=== PATIENT | female | born 1960 | race Caucasian/White ===

== ENCOUNTER 2019-02-24 14:34 | Inpatient (IN) | payer OTHER, SELFPAY ==
[2019-02-24 13:20] VITALS: BP 154/92; PULSE 78; RESP 16; TEMP 36.8; O2SAT 98
[2019-02-24 13:30] VITALS: PULSE 72
[2019-02-24 14:00] VITALS: BMI 41.3
[2019-02-24 14:14] VITALS: BMI 41.4
[2019-02-24 15:19] LABS: Absolute Lymphocyte Count 0.49 X10^3/uL (0.83-4.51); Absolute Neutrophil Count 3.9 X10^3/uL (2.0-7.7); Basophil# 0.01 X10^3/uL; Basophil% 0.2 % (0-1); Hematocrit 40.2 % (37-47); Lymphocyte # 0.49 X10^3/ul (4.0); Lymphocyte % 10.9 % (19-41); Mean Corp Hgb Conc 32.3 g/dL (32-36); Mean Corpuscular Hgb 30.7 pg (27.0-32.0); Mean Platelet Vol. 9.4 fl (6.2-12.0); Monocyte# 0.03 X10^3/uL; Monocyte% 0.7 % (0-10); NRBC Flagged by Analyzer 0 % (0-5); Neutrophil % 86.9 % (47-70); POSITIVE DIFFERENTIAL YES; POSITIVE MORPHOLOGY YES; Platelet Count 195 K/mm3 (150-450); RBC Distribution Width CV 12.7 % (11.6-14.6); Red Blood Count 4.23 M/mm3 (4.2-5.4); White Blood Count 4.5 K/mm3 (4.4-11.0)
[2019-02-24 15:20] LABS: Differential Indicated SCAN CRITERIA MET
[2019-02-24] MEDS: Morphine 2 MG/ML Syringe IV ×2 (15:28→18:45)
[2019-02-24] MEDS: 0.9% Normal Saline 1,000 ML 125 ML IV ×2 (15:28→23:47)
[2019-02-24] MEDS: 0.9% Saline Lock 10 ML Syringe IV ×2 (15:28→18:45)
[2019-02-24 15:32] LABS: ALB/GLOB Ratio 0.8 RATIO (0.9-2.4); AST(SGOT) 16 U/L (15-37); Alanine Aminotransfer ALT/SGPT 15 U/L (13-56); Albumin, Serum 3.3 g/dL (3.2-5.0); Alkaline Phosphatase 91 U/L (45-117); Anion Gap 5 (5-15); BUN 17 mg/dL (7-18); BUN/Creat Ratio 18.1 RATIO (10-20); Calcium,Total 8.9 mg/dL (8.5-10.1); Chloride 108 mmol/L (98-107); Creatinine, Serum 0.94 mg/dL (0.55-1.02); EST Glomerular Filtration Rate 64 mL/min (>60); Est Glom Filt Rate - Afr Amer 78 mL/min (>60); Estimated Creatinine Clearance 50.34 ml/min; Globulin 3.9 g/dL (2.2-4.2); Glucose 119 mg/dL (74-106); Potassium 4.5 mmol/L (3.5-5.1); Protein, Total 7.2 g/dL (6.4-8.2); Sodium Level 139 mmol/L (136-145)
[2019-02-24 15:55] LABS: Anisocytosis RARE; Macrocytosis RARE; Platelet Estimate ADEQUATE (ADEQ); Red Cell Morphology N CHROM NORMAL (NORM C&C); Toxic Granulation RARE
--- NOTE | 2019-02-24 16:46 | HP.PCM_ITS ---
Problem List (1) Left ureteral calculus Status: Acute History of Present Illness Date of Admission: 02/24/19 Chief Complaint: left 10mm UPJ stone and pyelonephritis The patient is a 58 year old female with multiple medical problems who presented to outside emergency room with severe left flank pain CAT scan was done to demonstrate obstructing stone in the proximal left ureter at the left UPJ causing hydronephrosis obstruction she was also found to have a significant urinary tract infection so because of this she was transferred here for further care. She clinically looks stable. No signs of sepsis. She is clinically stable at this point her pain is under control plan to take her surgery tomorrow for stent Past medical history includes a history of a stroke, she has a hole in her heart and she had a patch this past year, she has a history of orthopedic surgery for her shoulder that she fractured when she fell. She is on Plavix and aspirin to prevent stroke. We will him to hold the Plavix and aspirin for the stent but will restart it immediately given her history of a stroke this past year. Past Medical History Allergies No Known Allergies Allergy (Verified 02/24/19 14:02) Home Medications: Ambulatory Orders Medication Instructions Recorded Aspirin [Aspirin, Baby] 81 mg PO DAILY@0800 02/24/19 Atorvastatin Calcium 10 mg PO DAILY 02/24/19 Clopidogrel Bisulfate [Plavix] 75 mg PO DAILY 02/24/19 Garlic 2 ea PO DAILY 02/24/19 Lisinopril 5 mg PO DAILY 02/24/19 Niacin 250 mg PO DAILY 02/24/19 Surgical History: - - Repair of a hole in her heart she is on aspirin and Plavix Psychiatric History: No pertinent psych hx PHYSICIAN LOCUMS URGENT CARE History: No pertinent PHYSICIAN LOCUMS URGENT CARE history Lives: With Family Smoking Status: Never smoker Tobacco Use: Non-smoker Alcohol: None Drugs: None VTE Information - Inpt Only VTE Present on Admission: No VTE Mechan Device Prophylaxis: SCD's Patient Problems: Active and Suspected Problems Left ureteral calculus (Acute) - Physical Exam Vitals/I&O's: Vital Signs Temp Pulse Resp BP Pulse Ox 98.2 F 72 16 154/92 H 98 02/24/19 13:20 02/24/19 13:30 02/24/19 13:20 02/24/19 13:20 02/24/19 13:20 Oxygen Delivery Method Room Air Weight: 104.3 kg Body Mass Index (BMI) 41.3 General: Alert, Oriented x3, Cooperative HEENT: Atraumatic, PERRLA, EOMI, Normocephalic Neck: Supple, No JVD, Negative Carotid Bruits Lungs: Clear to auscultation, Normal air movement Cardiovascular: Regular rate, No murmurs Abdomen: Bowel Sounds Present, Soft, Non Tender Extremities: No edema, Capillary Refill Less than 3 Seconds Skin: No rashes, No breakdown Musculoskeletal: No Tenderness to Palpation of Joints or Extremities Neurological: Cranial nerves II-XII grossly intact Psych/Mental Status: Normal Affect, Appropriate Laboratory Results 02/24/19 15:05: WBC 4.5, RBC 4.23, Hgb 13.0, Hct 40.2, MCV 95.0, MCH 30.7, MCHC 32.3, RDW Std Deviation 44.0 H, RDW Coeff of Rosie 12.7, Plt Count 195, MPV 9.4, Immature Gran % (Auto) 1.300 H, Neut % (Auto) 86.9 H, Lymph % (Auto) 10.9 L, [place] % (Auto) 0.7, Eos % (Auto) 0.0, Baso % (Auto) 0.2, Absolute Neuts (auto) 3.9, Absolute Lymphs (auto) 0.49 L, Nucleated RBC % 0, Differential Comment SEE COMMENT, Diff Path Review May foll, Toxic Granulation RARE, Platelet Estimate ADEQUATE, RBC Morphology N CHROM, Anisocytosis RARE, Macrocytosis RARE 02/24/19 15:05: Sodium 139, Potassium 4.5, Chloride 108 H, Carbon Dioxide 26.0, Anion Gap 5, BUN 17, Creatinine 0.94, Estim Creat Clear Calc 50.34, Est GFR (MDRD) Af Amer 78, Est GFR (MDRD) Non-Af 64, BUN/Creatinine Ratio 18.1, Glucose 119 H, Calcium 8.9, Total Bilirubin 0.50, AST 16, ALT 15, Alkaline Phosphatase 91, Total Protein 7.2, Albumin 3.3, Globulin 3.9, Albumin/Globulin Ratio 0.8 L Current Medications Acetaminophen (Tylenol) 650 mg PO Q6H PRN PRN PRN Reason: Pain Score 1-3/Temp > 100.7 F Al Hydroxide/Mg Hydroxide (Mylanta Ii) 30 ml PO Q6H PRN PRN PRN Reason: Gastric Burning Albuterol Sulfate (Ventolin Aerosols) 2.5 mg INHALATION Q2H PRN PRN PRN Reason: Shortness of Breath/Wheezing Atorvastatin Calcium (Lipitor) 10 mg PO DAILY [facility] Dextrose (D50w Syringe) 0 gm IV X1 PRN; Protocol PRN Reason: Hypoglycemia Docusate Sodium (Colace) 100 mg PO BID PRN PRN PRN Reason: Constipation Famotidine (Pepcid) 20 mg PO BID TROY Glucagon () 1 mg IM .X1 PRN PRN Reason: Hypoglycemia Sodium Chloride () 1,000 mls @ 125 mls/hr IV .Q8H TROY Last Admin: 02/24/19 15:28 Dose: 125 mls/hr Documented by: Ciprofloxacin (Cipro) 400 mg in 200 mls @ 200 mls/hr IV Q12 TROY Lisinopril (Zestril) 5 mg PO DAILY [facility] Morphine Sulfate () 2 mg IV Q3H PRN PRN PRN Reason: Pain Score 6-10/10 Last Admin: 02/24/19 15:28 Dose: 2 mg Documented by: Niacin (Niacin Sr) 250 mg PO DAILY [facility] Ondansetron HCl (Zofran) 4 mg IV Q8H PRN PRN PRN Reason: NAUSEA/VOMITING Oxycodone HCl (Oxyir) 5 mg PO Q4H PRN PRN PRN Reason: Pain Score 4-5/10 Prochlorperazine Edisylate (Compazine Iv) 5 mg IV Q4H PRN PRN PRN Reason: Breakthrough nausea/vomiting Sodium Chloride () 10 - 40 ml IV UD PRN PRN Reason: SALINE FLUSH Last Admin: 02/24/19 15:28 Dose: 10 ml Documented by: Temazepam (Restoril) 15 mg PO QHS PRN PRN PRN Reason: INSOMNIA Throat Lozenges (Cepacol Sore Throat Lozenge) 1 lozenge MUCOUS MEM Q2H PRN PRN PRN Reason: Sore throat or cough Assessment/Plan All Active Problems Left ureteral calculus (Acute) 58-year-old female with multiple medical problems including a history of a stroke, she did have a hole in her heart patched, she presented obstructing stone in the left kidney, aspirin Plavix on hold and for surgery for tomorrow to take her to do a cystoscopy and left stent placement then we may plan for probably laser of the stone in the near future.
[2019-02-24 18:45] VITALS: BP 130/77; PULSE 104; RESP 18; TEMP 37.2; O2SAT 95
[2019-02-24 19:49] VITALS: BP 124/50; PULSE 102; RESP 22; TEMP 36.8; O2SAT 95
[2019-02-24] MEDS: Ciprofloxacin 400 MG/200 ML BAG 200 MG IV (22:10)
[2019-02-24] MEDS: Famotidine 20 MG Tablet PO (22:10)
[2019-02-24] MEDS: Temazepam 15 MG Capsule PO (22:11)
[2019-02-25] VITALS (10 sets, daily range): BP systolic 126–157; BP diastolic 58–95; PULSE 72–103; RESP 14–18; TEMP 36.8–37.8; O2SAT 92–96; BMI 41.3
[2019-02-25 05:49] LABS: Absolute Lymphocyte Count 0.99 X10^3/uL (0.83-4.51); Absolute Neutrophil Count 8.1 X10^3/uL (2.0-7.7); Basophil# 0.01 X10^3/uL; Basophil% 0.1 % (0-1); Eosinophil# 0.01 X10^3/uL; Eosinophils% 0.1 % (0-5); Hematocrit 33.3 % (37-47); Hemoglobin 10.9 g/dL (12.0-15.0); Lymphocyte # 0.99 X10^3/ul (4.0); Lymphocyte % 9.8 % (19-41); Mean Corp Hgb Conc 32.7 g/dL (32-36); Mean Corpuscular Hgb 30.9 pg (27.0-32.0); Mean Corpuscular Volume 94.3 fL (81-99); Mean Platelet Vol. 9.7 fl (6.2-12.0); Monocyte# 0.95 X10^3/uL; Monocyte% 9.4 % (0-10); NRBC Flagged by Analyzer 0 % (0-5); Neutrophil # 8.12 X10^3/uL (2.7-7.7); Neutrophil % 80.1 % (47-70); Platelet Count 166 K/mm3 (150-450); RBC Distribution Width CV 13.3 % (11.6-14.6); RBC Distribution Width SD 45.5 fl (35.1-43.9); Red Blood Count 3.53 M/mm3 (4.2-5.4); White Blood Count 10.1 K/mm3 (4.4-11.0)
--- NOTE | 2019-02-25 06:00 | EKG12_ITS ---
Test Reason : PRE OP Blood Pressure : / mmHG Vent. Rate : 103 BPM Atrial Rate : 103 BPM P-R Int : 164 ms QRS Dur : 078 ms QT Int : 330 ms P-R-T Axes : 054 032 037 degrees QTc Int : 432 ms Sinus tachycardia Otherwise normal ECG No previous ECGs available Confirmed by KIERRA JIMENEZ, RYAN ([id number]), international editorial producer JOSSE PASTRANA ([id number]) on 03/03/2019 1:19:41 PM Referred By: NICHOLAS Confirmed By:WALLY LOZADA MD
[2019-02-25 06:11] LABS: Anion Gap 7 (5-15); BUN 24 mg/dL (7-18); BUN/Creat Ratio 18.3 RATIO (10-20); Calcium,Total 7.9 mg/dL (8.5-10.1); Chloride 109 mmol/L (98-107); Creatinine, Serum 1.31 mg/dL (0.55-1.02); EST Glomerular Filtration Rate 44 mL/min (>60); Est Glom Filt Rate - Afr Amer 53 mL/min (>60); Estimated Creatinine Clearance 36.12 ml/min; Glucose 118 mg/dL (74-106); Sodium Level 138 mmol/L (136-145)
[2019-02-25] MEDS: 0.9% Normal Saline 1,000 ML 125 ML IV ×2 (07:00→16:42)
[2019-02-25] MEDS: 0.9% Saline Lock 10 ML Syringe IV (07:00)
--- NOTE | 2019-02-25 07:00 | RAD_ITS ---
STUDY: X-RAY - ABDOMEN/PELVIS REASON FOR EXAM: Female, 58 years old. Left ureteral calculus. TECHNIQUE: Single AP view of the abdomen / pelvis. COMPARISON: None. FINDINGS: There is an abundance of fecal material throughout the colon. There is a 9.1 mm calculus overlying the transverse processes of the L2 vertebra on the left side. Normal soft tissue structures. There are diffuse degenerative changes of the visualized lumbar spine. Osteoarthritis of both hip joints. RAD/Abdomen Single View IMPRESSION: 9.1 mm calculus overlying the transverse processes of the L2 vertebrae on the left side. Electronically Signed: Angel Pryor, at 10:37 EST , Service support ,
[2019-02-25] MEDS: Ciprofloxacin 400 MG/200 ML BAG 200 MG IV (10:00)
--- NOTE | 2019-02-25 10:40 | CASEMGMT ---
RN JACOB Face to Face with patient for initial transition planning/care coordination assessment. RN CM introduced self and role at [facility]. Patient lying in bed, alert and oriented, at bedside. Patient willing to participate in assessment and is able to answer all questions appropriately. Care providers, pharmacy, and demographics verified. Patient wishes to discharge home, denies need for home health at this time. Patient states she has no further needs or concerns at this time. CM to follow for discharge planning needs that may arise. PCP: Sunday Specialists: None Preferred Pharmacy: [facility] Insurance: None Prescription Benefit: None Living Will/HPOA: none LNOK: Living Arrangements: Patient lives with in 2 story home with bed and bath on 1st floor. Patient independent at home. Transportation: Driving services DME/HHC: Patient has cane and walker at home. Denies need for HHC. Disposition Plan: Patient to discharge home with family support and follow-up plans in place. Brianna WOODS, RN, CM
--- NOTE | 2019-02-25 13:56 | NURSING ---
pt down to AC. report called to MARIANO Hearn.
--- NOTE | 2019-02-25 15:17 | PCM.DC ---
- Discharge Diagnoses Current Active Problems: Current Active and Chronic Problems Left ureteral calculus (Acute) You will use the following diet at home:: No restrictions Your food should be the consistency of: Regular Discharge Activity: May not drive while taking narcotic pain medications., May Shower Call your doctor if you observe: Fever of 101 or Higher Suture Line Care: Avoid Pulling/Pushing, Avoid Pinching/Bending Allergies/Adverse Reactions: Allergies No Known Allergies Allergy (Verified 02/24/19 14:02) Medications to take at Discharge Atorvastatin Calcium 10 mg PO DAILY 02/24/19 Garlic 2 ea PO DAILY 02/24/19 Lisinopril 5 mg PO DAILY 02/24/19 Niacin 250 mg PO DAILY 02/24/19 Acetaminophen [Tylenol Extra Strength] 500 mg PO Q4H PRN PRN #20 tab 02/25/19 Ciprofloxacin [Cipro] 500 mg PO BID #14 tab 02/25/19 Hydrocodone/Acetaminophen [Sheldon 5-325 Tablet] 1 ea PO Q4H PRN PRN 5 Days #10 tab 02/25/19 Ibuprofen 600 mg PO Q4H PRN PRN #20 tab 02/25/19 The following prescriptions were given: Ciprofloxacin [Cipro] 500 mg PO BID #14 tab Transmission Status: Sent to [place], [place] Ibuprofen 600 mg PO Q4H PRN PRN #20 tab PRN Reason: Pain Score 1-10/10 Transmission Status: Sent to [place], [place] Hydrocodone/Acetaminophen [Sheldon 5-325 Tablet] 1 ea PO Q4H PRN PRN 5 Days #10 tab PRN Reason: Pain Score 1-10/10 Prescription Printed Acetaminophen [Tylenol Extra Strength] 500 mg PO Q4H PRN PRN #20 tab PRN Reason: Pain Score 1-10/10 Transmission Status: Sent to [place], [place] Test Results: Test results from this visit will be discussed in further detail at your follow-up appointment, if applicable. Please Follow Up With: Chino Lousie MD When: call office to get set up for surgery next [facility] with shockwave lithotriopsy
--- NOTE | 2019-02-25 15:24 | CASEMGMT ---
Social Work Note Pt is buddhism and buddhism aid is listed for pt. Brianna Rahman CERTIFIED COATINGS INSPECTOR, [employer]AN
--- NOTE | 2019-02-25 15:49 | PCM.OPRPT ---
Problem List (1) Left ureteral calculus Status: Acute Report of Operation Date of Procedure: 02/25/19 Pre-Operative Diagnosis: Obstructing left proximal ureteral calculi Post-Operative Diagnosis: The same Surgery/Procedure Performed:: Cystoscopy left stent placement Description of Surgical Findings:: 58-year-old female taken back to the operating room she underwent anesthesia she was placed in dorsolithotomy position the urethra vaginal area prepped and draped in usual sterile fashion with the bladder with a 21 [place] rigid cystourethroscope identified the left ureteral orifice advanced a wire up past the stone and then advanced a stent over the wire the stent pushes stone up into the kidney pulled the wire the stent: The kidney and bladder good position I then drained the bladder patient anesthetic is being reversed and will plan to set up next week for shockwave lithotripsy. Type of Anesthesia:: General Drains: stent - Admit VTE Documentation VTE Present on Admission: No VTE Mechan Device Prophylaxis: SCD's
[2019-02-25] MEDS: Lisinopril 5 MG Tablet PO (18:11)
[2019-02-25] MEDS: Atorvastatin Calcium 10 MG Tablet PO (18:11)
[2019-02-25] MEDS: Ciprofloxacin 500 MG Tablet PO (19:25)
[2019-02-26 09:16] LABS: Pathologist Review Reviewed
== END 2019-02-25 19:29 | disposition home or self-care (01) | DRG 661 ==
PROVIDERS: Admitting Provider Urology; Visit Provider Urology
PROC: 0T778DZ Dilation of Left Ureter with Intraluminal Device, Via Natural or Artificial Opening Endoscopic (ICD-10-PCS; CPT 50575; principal; 2019-02-25 14:55)
DX: N13.6 Pyonephrosis (principal); I10 Essential (primary) hypertension; Z78.0 Asymptomatic menopausal state; Z79.02 Long term (current) use of antithrombotics/antiplatelets; Z79.82 Long term (current) use of aspirin; Z79.899 Other long term (current) drug therapy; Z86.73 Personal history of transient ischemic attack (TIA), and cerebral infarction without residual deficits
CPT/HCPCS: 36415; 74018; 76000; 80048; 80053; 85025; 93005; J7030; A4216; C1769; C2617; J0744; J2405

== ENCOUNTER 2019-03-04 12:37 | Day surgery (SDC) | payer SELFPAY ==
[2019-02-25 13:31] VITALS: BMI 41.3
[2019-03-04 13:15] VITALS: BP 142/69; PULSE 80; RESP 16; TEMP 36.3; O2SAT 96; BMI 41.5
[2019-03-04] MEDS: Lactated Ringers 1,000 ML 100 ML IV (13:29)
--- NOTE | 2019-03-04 14:16 | DCINST_ITS ---
- Discharge Diagnoses Current Active Problems: Left kidney stone Reason(s) for Visit for Discharge Instructions: Left ureteroscopy laser of the stone and stent You will use the following diet at home:: Regular Your food should be the consistency of: Regular Discharge Activity: Return to Normal Activity Call your doctor if you observe: Fever of 101 or Higher Instructions: Treating Kidney Stones: Ureteroscopic Stone Removal Allergies/Adverse Reactions: Allergies No Known Allergies Allergy (Verified 03/02/19 14:15) Medications to take at Discharge Atorvastatin Calcium 10 mg PO DAILY 02/24/19 Garlic 2 ea PO DAILY 02/24/19 Lisinopril 5 mg PO DAILY 02/24/19 Niacin 250 mg PO DAILY 02/24/19 Acetaminophen [Tylenol Extra Strength] 500 mg PO Q4H PRN PRN #20 tab 02/25/19 Ciprofloxacin [Cipro] 500 mg PO BID #14 tab 02/25/19 Ibuprofen 600 mg PO Q4H PRN PRN #20 tab 02/25/19 Primary Care Physician: Susan Brand MD [Primary Care Provider] - Test Results: Test results from this visit will be discussed in further detail at your follow- up appointment, if applicable. Please Follow Up With: Jazz Carbajal When: next week to remove stent
[2019-03-04] MEDS: Cefazolin 2 GM in 0.9% Normal Saline 100 ML IV (14:26)
--- NOTE | 2019-03-04 14:57 | OP.PCM_ITS ---
Report of Operation Date of Procedure: 03/04/19 Pre-Operative Diagnosis: Left renal calculi status post stent Post-Operative Diagnosis: Same Surgery/Procedure Performed:: Cystoscopy, left retrograde pyelogram, interpretation fluoroscopic images, left ureteroscopy laser lithotripsy of stone and left stent placement Description of Surgical Findings:: 58-year-old female underwent stent placement from an obstructing stone and an infection she now presents for definitive treatment of the stone with laser lithotripsy. She is taken back to the operating room at the smooth induction of anesthesia she was placed supine on the table. The urethra vaginal area were prepped and draped in usual sterile fashion within the bladder with a 21 [place] rigid cystourethroscope, I grabbed the existing stent pulled out to the meatus, I then advanced a wire through the stent up into the left kidney the wire coiled in the left kidney, and then over the wire went in with a flexible ureteroscope I was able to get up in the left kidney quite easily I encountered the stone the stone had moved into the lower pole of the kidney I then had a flex the scope quite a bit to get to the stone and then used a 270 ?m fiber laser to laser the stone little tiny pieces this is used with laser energy of 15 Hz and 1.2 J after the stone was broken up in the low tiny pieces that should pass on their own then I worked my way down the ureter we performed a retrograde pyelogram, I then left the wire in place and then over the wire place a stent it was a 6 [place] by 26 cm stent at the stent on the string for easy extraction she can follow-up in the office next week to remove the stent. Type of Anesthesia:: General Drains: stent left side - Admit VTE Documentation VTE Present on Admission: No VTE Mechan Device Prophylaxis: SCD's
[2019-03-04 15:04] VITALS: BP 142/69; BP 154/93; PULSE 87; RESP 16; TEMP 36.6; O2SAT 97
[2019-03-04] MEDS: Ketorolac 15 MG/ML Vial IV (15:14)
[2019-03-04 15:15] VITALS: BP 142/69; BP 152/96; PULSE 73; RESP 16; O2SAT 100
[2019-03-04 15:30] VITALS: BP 142/69; BP 152/94; PULSE 70; RESP 16; O2SAT 100
[2019-03-04 15:40] VITALS: BP 142/69; BP 161/89; PULSE 71; RESP 16; TEMP 36.2; O2SAT 98
[2019-03-04 17:31] VITALS: BP 130/79; BP 142/69; PULSE 88; RESP 16; TEMP 38.2; O2SAT 93
--- NOTE | 2019-03-07 08:43 | HP.PCM_ITS ---
History of Present Illness Date of Admission: 03/04/19 Chief Complaint: Left kidney stones The patient is a 58 year old female with stone in her left kidney presents the hospital for left ureteroscopy and laser lithotripsy. Past Medical History Allergies No Known Allergies Allergy (Verified 03/02/19 14:15) Home Medications: Ambulatory Orders Medication Instructions Recorded Atorvastatin Calcium 10 mg PO DAILY 02/24/19 Garlic 2 ea PO DAILY 02/24/19 Lisinopril 5 mg PO DAILY 02/24/19 Niacin 250 mg PO DAILY 02/24/19 Acetaminophen [Tylenol Extra 500 mg PO Q4H PRN PRN #20 tab 02/25/19 Strength] Ciprofloxacin [Cipro] 500 mg PO BID #14 tab 02/25/19 Ibuprofen 600 mg PO Q4H PRN PRN #20 tab 02/25/19 Ciprofloxacin [Cipro] 500 mg PO BID #6 tab 03/04/19 Surgical History: - - Repair of a hole in her heart she is on aspirin and Plavix Psychiatric History: No pertinent psych hx 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 Smoking Status: Never smoker VTE Information - Inpt Only VTE Present on Admission: No - Physical Exam Vitals/I&O's: Vital Signs Temp Pulse Resp BP Pulse Ox 100.8 F H 88 16 130/79 H 93 03/04/19 17:31 03/04/19 17:31 03/04/19 17:31 03/04/19 17:31 03/04/19 17:31 Oxygen Delivery Method Room Air Weight: 102.9 kg Body Mass Index (BMI) 41.5 General: Alert, Oriented x3, Cooperative HEENT: Atraumatic, PERRLA, EOMI, Normocephalic Neck: Supple, No JVD, Negative Carotid Bruits Lungs: Clear to auscultation, Normal air movement Cardiovascular: Regular rate, No murmurs Abdomen: Bowel Sounds Present, Soft, Non Tender Extremities: No edema, Capillary Refill Less than 3 Seconds Skin: No rashes, No breakdown Musculoskeletal: No Tenderness to Palpation of Joints or Extremities Neurological: Cranial nerves II-XII grossly intact Psych/Mental Status: Normal Affect, Appropriate Assessment/Plan All Active Problems Left ureteral calculus (Acute) Plan to proceed with left ureteroscopy and stent placement.
== END 2019-03-04 18:09 | disposition home or self-care (01) ==
LOC: SDC 12:41 → AC 12:57
PROVIDERS: Referring Provider Urology; Visit Provider Urology
PROC: 0TJ98ZZ Inspection of Ureter, Via Natural or Artificial Opening Endoscopic (ICD-10-PCS; CPT 52352; principal; 2019-03-04 14:20)
DX: N20.2 Calculus of kidney with calculus of ureter (principal); I10 Essential (primary) hypertension; Z78.0 Asymptomatic menopausal state; Z86.73 Personal history of transient ischemic attack (TIA), and cerebral infarction without residual deficits; Z79.899 Other long term (current) drug therapy; Z79.82 Long term (current) use of aspirin; Z79.02 Long term (current) use of antithrombotics/antiplatelets
CPT/HCPCS: 52356; 76000; J7120; C1769; C2617; J2405